=== PATIENT | male | born 1935 | race Caucasian/White ===

== ENCOUNTER → 2022-03-05 | Day surgery (SDC) | payer MEDICARE, OTHER ==
[~2022-03-05] VITALS: Ht 172.7 cm; Wt 71.2 kg
[~2022-03-05] MED LIST: AMLODIPINE BESYL5 MG PO; ASPIRIN EC81 MG PO; B COMPLEX1 EACH PO; CINNAMON500 MG PO; CITRATE OF MAG296 ML PO; DIAZEPAM5 MG PO; ESCITALOPRAM OX10 MG PO; FINASTERIDE5 MG PO; FLOMAX0.4 MG PO; LANTUS SOL100 UNIT/1 SC; LOVAZA1 GM PO; MOLNUPIRAVIR (200 MG PO; OCUVITE EYE +1 EACH PO; POTASSIUM CITR15 MEQ PO; PRAVASTATIN SOD20 MG PO; PRILOSEC20 MG PO; PRINIVIL20 MG PO; SPIRIVA18 MCG PO; SYMBICORT 16010.2 GM NEB; VENTOLIN HFA IN18 GM INH; VITAMIN D3100 GM PO
== END | disposition home or self-care (01) ==
LOC: FAS 07:59
DX: D12.4 Benign neoplasm of descending colon (principal); K57.30 Diverticulosis of large intestine without perforation or abscess without bleeding; K75.81 Nonalcoholic steatohepatitis (NASH); R16.1 Splenomegaly, not elsewhere classified; Z91.041 Radiographic dye allergy status; J44.9 Chronic obstructive pulmonary disease, unspecified; E11.9 Type 2 diabetes mellitus without complications; I10 Essential (primary) hypertension; Z79.82 Long term (current) use of aspirin; Z79.4 Long term (current) use of insulin; Z79.899 Other long term (current) drug therapy
CPT/HCPCS: J2704; J7120